=== PATIENT | female | born 1970 ===

== ENCOUNTER → 2018-01-30 21:36 | Outpatient (REF) | payer OTHER, SELFPAY ==
[2018-01-31 02:32] LABS: Free T3, Triiodothyronine Free 3.41 pg/mL (2.77-5.27); T4 Total Thyroxine 8.68 ug/dL (5.5-11.0)
[2018-01-31 02:45] LABS: Thyroid Stimulating Hormone 2.37 uIU/mL (0.47-4.68)
== END ==
LOC: LAB 21:36
PROVIDERS: Visit Provider Naturopath
DX: E03.9 Hypothyroidism, unspecified (principal)
CPT/HCPCS: 36415; 84436; 84443; 84481